=== PATIENT | female | born 1980 | race African-American/Black ===

== ENCOUNTER 2017-12-15 02:05 | Emergency (ER) | payer MEDICAID, OTHER ==
[~2017-12-15] VITALS: Ht 167.6 cm; Wt 57.0 kg
[2017-12-15] MEDS ORDERED: ONDANSETRON HCL 4MG/2ML INJ IV STA (02:29)
[2017-12-15] MEDS ORDERED: SODIUM CHLORIDE 0.9% 1,000 ML IV ONE (02:29)
[2017-12-15] MEDS ORDERED: LORAZEPAM 2MG/ML CPJ IV ONE (02:30)
[2017-12-15 02:51] LABS: BASOPHILS % 0.8 % (0.0-2.0); EOSINOPHILS % 1.5 % (0.0-5.0); HEMATOCRIT. 40.7 % (36.0-48.0); HEMOGLOBIN. 14.2 g/dL (12.0-16.0); LYMPHOCYTES % 23.8 % (20.0-50.0); MEAN CORPUSCULAR HEMOGLOBIN 31.9 pg (28.0-32.0); MEAN CORPUSCULAR VOLUME 91.8 fL (81.0-99.0); MEAN PLATELET VOLUME 8.1 fl (7.4-10.4); MONOCYTES % 9.5 % (2.0-8.0); NEUTROPHILS % 64.4 % (40.0-76.0); PLATELET 230 x1000/uL (130-400); RED BLOOD CELL COUNT 4.44 mill/uL (4.2-5.4); RED CELL DISTRIBUTION WIDTH 13.9 % (11.6-14.6)
[2017-12-15 02:54] LABS: CHLORIDE 102 mEq/L (98-107)
[2017-12-15 02:56] LABS: HCG SCREEN NEGATIVE
[2017-12-15 02:59] LABS: ETHANOL BLOOD < 10 mg/dL
[2017-12-15 03:00] LABS: D-DIMER < 0.19 mg/L FEU (<0.50); INR 1.1; PROTHROMBIN TIME 11.2 sec (9.1-11.1)
[2017-12-15 03:03] LABS: CREATINE KINASE 162 IU/L (26-192)
[2017-12-15 03:34] LABS: CLARITY URINE CLEAR (CLEAR); COLOR URINE YELLOW (YELLOW); KETONES URINE NEGATIVE (NEGATIVE); LEUKOCYTE ESTERASE URINE NEGATIVE (NEGATIVE); NITRITE URINE NEGATIVE (NEGATIVE); OCCULT BLOOD URINE NEGATIVE (NEGATIVE); PROTEIN URINE NEGATIVE (NEGATIVE); SPECIFIC GRAVITY URINE 1.002 (1.005-1.030); UROBILINOGEN URINE 0.2 E.U./dL (0.2-1.0)
[2017-12-15 03:57] LABS: *AMPHETAMINES SCREEN URINE NEGATIVE (NEGATIVE); *BARBITURATES SCREEN URINE NEGATIVE (NEGATIVE)
[2017-12-15 03:58] LABS: *BENZODIAZEPINES SCREEN URINE NEGATIVE (NEGATIVE); *COCAINE SCREEN URINE NEGATIVE (NEGATIVE); METHADONE URINE SCREEN NEGATIVE (NEGATIVE); OPIATES URINE SCREEN NEGATIVE (NEGATIVE); PHENCYCLIDINE URINE SCREEN NEGATIVE (NEGATIVE)
[2017-12-15 04:04] LABS: CANNABINOID URINE SCREEN PRESUMTIVE POSITIVE (NEGATIVE)
[2017-12-15 07:41] VITALS: BP 113/69
== END 2017-12-15 07:51 | disposition home or self-care (01) ==
LOC: ER 02:11
DX: R00.2 Palpitations (principal); F12.129 Cannabis abuse with intoxication, unspecified; F41.9 Anxiety disorder, unspecified; E86.0 Dehydration
CPT/HCPCS: 36415; 80053; 80305; 81003; 82550; 84443; 84484; 84703; 85025; 85379; 85610; 93005; 96361; 96374; 96375; 99285; G0482; J2060; J2405; J7030; Z7610